=== PATIENT | male | born 1940 | race African-American/Black ===

== ENCOUNTER 2020-04-10 14:42 | Emergency (ER) | payer MEDICARE, OTHER ==
[~2020-04-10] VITALS: Ht 170.2 cm; Wt 75.0 kg
[~2020-04-10 14:42] MED LIST: ATOR10TA69 PO; CYCL5TAB PO; DILT180C87 PO; GABAPENTIN PO; LOSA25TA26 PO; METO-293 PO; OMEP20CA14 PO; OXYB5TAB16 PO; RANI150C12 PO; TAMS0.4C31 PO
[2020-04-10] MEDS ORDERED: SODIUM CHLORIDE 0.9% 500 ML IV ONE (15:00)
[2020-04-10 15:28] LABS: EOSINOPHILS % 1.1 % (0.0-5.0); HEMATOCRIT. 40.8 % (42.0-52.0); HEMOGLOBIN. 14.1 g/dL (14.0-18.0); LYMPHOCYTES % 13.4 % (20.0-50.0); MEAN CORPUSCULAR HEMOGLOBIN 31.2 pg (28.0-32.0); MEAN CORPUSCULAR VOLUME 90.6 fL (80.0-94.0); MEAN PLATELET VOLUME 8.6 fl (7.4-10.4); MONOCYTES % 7.9 % (2.0-8.0); NEUTROPHILS % 76.6 % (40.0-76.0); PLATELET 205 x1000/uL (130-400); RED BLOOD CELL COUNT 4.51 mill/uL (4.7-6.1); RED CELL DISTRIBUTION WIDTH 13.5 % (11.6-14.6)
[2020-04-10 15:33] LABS: CHLORIDE 111 mEq/L (98-107)
[2020-04-10 15:36] LABS: INR 1.1; PROTHROMBIN TIME 11.4 sec (9.6-11.0)
[2020-04-10] MEDS ORDERED: HYDROCODONE/ACETAMINOPHEN 5/325MG TABLET PO ONE (16:15)
[2020-04-10] MEDS ORDERED: POTASSIUM CHLORIDE 20MEQ TABLET SR PO NR (16:15)
[2020-04-10 17:30] VITALS: BP 119/69
== END 2020-04-10 17:33 | disposition home or self-care (01) ==
LOC: ER 15:06
DX: S01.411A Laceration without foreign body of right cheek and temporomandibular area, initial encounter (principal); S01.111A Laceration without foreign body of right eyelid and periocular area, initial encounter; E87.6 Hypokalemia; R00.0 Tachycardia, unspecified; W03.XXXA Other fall on same level due to collision with another person, initial encounter; Y93.89 Activity, other specified; Y92.018 Other place in single-family (private) house as the place of occurrence of the external cause
CPT/HCPCS: 36415; 70486; 71045; 80053; 83880; 84484; 85025; 93005; 99285